=== PATIENT | male | born 1995 | race Caucasian/White ===

== ENCOUNTER 2017-07-09 14:03 | Emergency (ER) | payer OTHER ==
[~2017-07-09] VITALS: Ht 182.9 cm; Wt 81.6 kg
--- NOTE | 2017-07-09 14:05 | ED SKIN/ALLERGY COMPLAINT ---
History of Present Illness General Chief Complaint: Allergy Symptoms Stated Complaint: BIBA ALLERGIC REACTION Source: patient Exam Limitations: no limitations Vital Signs & Intake/Output Vital Signs & Intake/Output Vital Signs Date Time Temp Pulse Resp B/P B/P Pulse O2 O2 Flow FiO2 Mean Ox Delivery Rate 07/09 1524 98.1 70 16 121/70 99 Room Air 07/09 1433 100 Room Air 07/09 1407 98.0 69 18 128/78 100 Allergies Coded Allergies: tree nut (Severe, ANAPHYLAXIS 07/09/17) Penicillins (UNKNOWN PER PT 07/09/17) Reconcile Medications No Known Home Medications Triage Nurses Notes Reviewed? yes Onset: Abrupt Duration: better, gone now Timing: single episode today Severity: moderate Severity Numbers: 5 HPI: Patient is a 22-year-old male with a past medical history of allergies to per high not swear at [employer] school today he ate a sandwich unknowingly had pinenuts and it he began having symptoms of throat swelling tongue swelling flushing sensation where a colleague told him that pinenuts were inside the sandwich where he immediately injected an EpiPen Patient was brought in by ambulance Currently patient is asymptomatic denies any fever chills shortness of breath tongue swelling lip swelling difficulty swallowing difficulty breathing rash or itching sensations. (Merrill Maciel) Past History Travel History Traveled to [place] past 21 day No Medical History Any Pertinent Medical History? none Surgical History Surgical History: non-contributory Family History Hx Contributory? No (Merrill Maciel) Review of Systems Review of Systems Constitutional: Reports: see HPI. EENTM: Reports: see HPI. Respiratory: Reports: no symptoms. Cardiovascular: Reports: no symptoms. GI: Reports: no symptoms. Genitourinary: Reports: no symptoms. Musculoskeletal: Reports: no symptoms. Skin: Reports: see HPI. Neurological/Psychological: Reports: no symptoms. Hematologic/Endocrine: Reports: no symptoms. Immunologic/Allergic: Reports: no symptoms. All Other Systems: Reviewed and Negative (Merrill Maciel) Physical Exam Physical Exam General Appearance: no apparent distress, alert, comfortable Head: atraumatic Eyes: Bilateral: normal appearance. Ears, Nose, Throat: normal pharynx, normal ENT inspection, hearing grossly normal Neck: normal inspection, supple, NO STRIDOR Respiratory: normal breath sounds, chest non-tender, no respiratory distress Cardiovascular: regular rate/rhythm Peripheral Pulses: 2+ radial (R) Neurologic/Psych: no motor/sensory deficits, awake Skin: intact, normal color, warm/dry (Merrill Maciel) Progress Differential Diagnosis: allergic reaction, anaphylaxis, angioedema, contact dermatitis, drug reaction, urticaria Plan of Care: Orders Procedure Date/time Status Telemetry/Lithographer Apprentice 07/09 1413 Active Patient upon initial examination was requesting, blood bedside no apparent distress laboratory monitor placed due to prior to arrival epinephrine No signs of anaphylaxis angioedema or even allergic reaction at this time Patient was reevaluated on multiple occasions laboratory monitor indicates 60-65 bpm Patient has no symptoms upon discharge (Merrill Maciel) Departure Departure Disposition: HOME OR SELF CARE Condition: Stable Clinical Impression Primary Impression: Food allergy Additional Instructions: As discussed continue to try to avoid pine nuts Begin [id number] Benadryl and Pepcid for the following 2 days to improve symptoms In the future use the EpiPen for concerns of anaphylaxis or angioedema as directed if symptoms worsen return to emergency room Departure Forms: Customer Survey General Discharge Information Prescriptions: Current Visit Scripts No Known Home Medications (Merrill Maciel) PA/CENTRAL SUPPLY WORKER Co-Sign Statement Statement: ED Attending supervision documentation- [] I saw and evaluated the patient. I have also reviewed all the pertinent lab results and diagnostic results. I agree with the findings and the plan of care as documented in the PA's/CENTRAL SUPPLY WORKER's documentation. [X] I have reviewed the ED Record and agree with the PA's/CENTRAL SUPPLY WORKER's documentation. [] Additions or exceptions (if any) to the PAs/CENTRAL SUPPLY WORKER's note and plan are summarized below: [] (Stephen Hiarston DO
[2017-07-09 15:24] VITALS: BP 121/70
== END 2017-07-09 15:53 ==
LOC: ERH 14:03
DX: T78.1XXA Other adverse food reactions, not elsewhere classified, initial encounter (principal)